=== PATIENT | female | born 1995 | race Caucasian/White ===

== ENCOUNTER 2017-02-21 13:33 | Outpatient (CLI) | payer OTHER ==
--- NOTE | 2017-02-21 16:16 | MRI ---
RIGHT ELBOW MRI WITHOUT IV CONTRAST: HISTORY: A 21-year-old female with right elbow pain and not being able to fully extend the elbow following an injury while serving a volleyball. TECHNIQUE: Multiplanar, multisequence MR examination of the right elbow was performed. FINDINGS: The UCL is intact. The lateral ulnar collateral ligament complex is intact. The medial and lateral epicondylar regions, including the common flexor and common extensor tendon insertion regions, are unremarkable. No evidence for abnormal marrow signal. No acute osteochondral defect. Triceps and biceps tendons are unremarkable. IMPRESSION: Unremarkable right elbow MRI. POS: [facility]
== END 2017-02-21 13:34 | disposition home or self-care (01) ==
LOC: SCSMRI 13:33
PROVIDERS: ATTEND Family Medicine
DX: S59.901D Unspecified injury of right elbow, subsequent encounter (principal)